=== PATIENT | female | born 1970 | race Caucasian/White ===

== ENCOUNTER 2016-10-07 15:00 | Emergency (ER) | payer BC ==
[2016-10-07] MEDS ORDERED: OPTIRAY 350 100 ML VIAL HMH IV ONE (15:01)
[2016-10-07] MEDS ORDERED: SODIUM CHLORIDE 0.9% 1,000 ML ONE (15:42)
[2016-10-07] MEDS ORDERED: ONDANSETRON 4 MG VIAL ONE (15:42)
[2016-10-07] MEDS ORDERED: DICYCLOMINE 20MG/2ML VIAL IM ONE (15:42)
[2016-10-07] MEDS ORDERED: LIDOCAINE 2% VISC 15 ML UDC ONE (17:13)
[2016-10-07] MEDS ORDERED: ALU/MAG/SIM 30 ML UDC ONE (17:13)
[2016-10-07] MEDS ORDERED: PROMETHAZINE 25 MG/ML VIAL ONE (17:17)
[2016-10-07] MEDS ORDERED: KETOROLAC 30 MG/ML VIAL ONE (18:13)
[2016-10-07] MEDS ORDERED: MORPHINE 4 MG/ML SYR ONE (19:07)
[2016-10-07] MEDS ORDERED: DILAUDID 1 MG/ML AMP ONE ×2 (19:12→19:19)
== END 2016-10-07 21:41 | disposition home or self-care (01) ==
LOC: ER 15:00
CPT/HCPCS: 36415; 74177; 76705; 80053; 81003; 82553; 83690; 84484; 85025; 93005; 96361; 96372; 96374; 96375